=== PATIENT | male | born 1970 | race Caucasian/White ===

== ENCOUNTER 2017-03-09 09:17 | Emergency (ER) | payer OTHER ==
[~2017-03-09] VITALS: Ht 177.8 cm; Wt 98.4 kg
[~2017-03-09 09:17] MED LIST: IBUP-1050 PO
[2017-03-09] MEDS ORDERED: BACITRACIN/POLYMYXIN B OINT 15 GM TUBE EXT STA (09:24)
[2017-03-09] MEDS ORDERED: LIDOCAINE/EPINEPHRINE 1% 20 ML VIAL ONE (09:25)
[2017-03-09 09:28] VITALS: TEMP 36.7; Ht 177.8 cm; Wt 98.4 kg
[2017-03-09] MEDS ORDERED: LIDOCAINE/EPINEPHRINE 1% 20 ML VIAL INFIL ONE (09:30)
[2017-03-09] MEDS ORDERED: AMOXICILLIN/CLAVULANATE TAB 875 MG TAB PO ONE (09:30)
[2017-03-09 09:41] VITALS: BP 137/110; PULSE 80; O2SAT 95
[2017-03-09] MEDS ORDERED: AMOX875T PO (09:42)
--- NOTE | 2017-03-09 09:49 | EMERGENCY ROOM VISIT NOTE ---
History Report prepared by Willa: Yesika Cheney Under the Supervision of: Dr. Ole Khan D.O. First contact with patient: 09:20 Chief Complaint: BITE Stated Complaint: DOG BITE History of Present Illness The patient is a 46 year old male who presents to the Emergency Room with complaints of a dog bite. The patient works for a [employer] and when he was on a customer's property he was approached by a dog who bit him in the left calf. The patient was brought to the emergency department by amulet's. Bleeding was controlled with pressure. The patient states that his pain is significantly worsened with any movement or ambulation. The patient was found have elevated blood pressure by the prehospital personnel prior to arrival. He states that he is in significant pain. The patient states that he is up-to-date with immunizations. According to the patient the animal that bit him is up-to- date with its rabies vaccinations as of 2017. 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 A total of 6 systems reviewed and were otherwise negative. Past Medical & Surgical Medical Problems: (1) Benign hypertension (2) Hernia repair Family History No significant family history Social History Smoking Status: Never Smoker Alcohol Use: occasionally Drug Use: none Marital Status: Housing Status: lives with family Occupation Status: employed Current/Historical Medications Scheduled Amoxicillin & Pot Clavulanate (Augmentin 875-125 mg), 875 MG PO BID Allergies Coded Allergies: No Known Allergies (Verified , 03/09/17) Physical Exam Vital Signs Date Time Temp Pulse Resp B/P (MAP) Pulse Ox O2 Delivery O2 Flow Rate FiO2 03/09/17 09:41 80 18 137/110 95 Room Air 03/09/17 09:28 36.7 89 18 135/102 97 Room Air Physical Exam GENERAL: Patient is awake and alert. He is somewhat anxious and uncomfortable. EYES: The conjunctivae are clear. The pupils are round and reactive. EARS, NOSE, MOUTH AND THROAT: The nose is without any evidence of any deformity. Mucous membranes are moist tongue is midline RESPIRATORY: Normal respiratory effort is noted there is no evidence of wheezing rhonchi or rales CARDIOVASCULAR: Regular rate and rhythm noted there no murmurs rubs or gallops normal S1 normal S2 GASTROINTESTINAL: The abdomen is soft. Bowel sounds are present in all quadrants. Abdomen is nontender MUSCULOSKELETAL/EXTREMITIES: There is no evidence of gross deformity full range of motion is noted in the hips and shoulders SKIN: There is no obvious evidence of any rash. There is a 3 centimeter laceration in the proximal left calf. There is no active bleeding at this time. There is also an abrasion beneath this laceration. It is not full-thickness. NEUROLOGIC: Patient is awake alert and oriented x3. Medical Decision & Procedures Medications Administered Medications (Trade) Dose Ordered Sig/Claude Route Start Time Stop Time Status Last Admin Dose Admin Bacitracin/ Polymyxin B Sulfate (Polysporin Oint) 1 appln NOW STAT EXT 03/09/17 09:24 03/09/17 09:25 DC 03/09/17 09:43 1 APPLN Amoxicillin/ Clavulanate Potassium (Augmentin Tab) 875 mg ONE ONCE PO 03/09/17 09:30 03/09/17 09:31 DC 03/09/17 09:42 875 MG Procedure Location: Posterior left calf Total length: 3 centimeters Complexity: Medium Verbal consent was obtained after the risks and benefits were explained, including but not limited to bleeding, scarring, infection, pain, and bone/joint /nerve damage. At this time, the risks of the procedure are less than the risks of NOT performing the procedure. A time out was taken and the correct patient and site identified. The skin was prepped with betadine. The target area was anesthetized with 8 ml of 1% lidocaine with epinephrine. Copious irrigation was performed using normal saline and Betadine. The skin was re-prepped with betadine and a sterile field set. The wound was explored for foreign bodies and none found. Examination revealed no injury to deep structures such as tendons, bone, or significant blood vessels. Debridement was not performed. The wound edges were approximated using 4, 4-0 simple interrupted nylon sutures. The mid portion of the laceration was approximated using one , 4-0 vertical mattress suture. Hemostasis and excellent approximation was achieved. Antibacterial ointment and a sterile dressing applied. Detailed wound care instructions and signs and symptoms of infection reviewed with the patient. No complications and the patient tolerated the procedure well. ED Course 919: The patient was evaluated in room B6. A complete history and physical examination were performed. 24: Polysporin Oint EXT 25: Lidocaine/Epinephrine 8 ml SQ 929: Augmentin 875 mg PO 32: I reassessed the patient at this time. I performed a laceration repair. Please see the procedure note above for further details. I discussed the results and treatment plan with the patient. I answered all pertaining questions that he had. He expressed understanding and verbalized agreement. The patient will be discharged home. Medical Decision Triage Nursing notes reviewed. The prehospital documentation was reviewed. The patient's history was concerning for dog bite to the left lower extremity. Differential diagnosis: Etiologies such as cellulitis, abscess, MRSA infection, necrotizing fasciitis, dermatitis, as well as others were entertained.. The patient is a 46-year-old male who presented to the emergency department for an evaluation after a dog bite to his left calf. The patient is up-to-date with immunizations. Animal control was notified and will follow-up the dog's history and immunization record as well as how the dog is doing over the next week. The area was irrigated thoroughly. The laceration was approximated and the patient tolerated procedure well. The patient was encouraged to follow-up with employee health for his job for the next few days for wound check. He was also encouraged to have sutures removed in 7-10 days. He was also encouraged to return to the emergency department immediately if develops signs of infection or if need arises. The patient was offered pain medication but he did not wish to have any but he felt much better after lidocaine injection. Head Trauma GCS Score: 15 Medication Reconcilliation Current Medication List: was personally reviewed by me Blood Pressure Screening Patient's blood pressure: Elevated blood pressure Blood pressure disposition: Referred to PCP Impression Primary Impression: Dog bite Scribe Attestation The scribe's documentation has been prepared under my direction and personally reviewed by me in its entirety. I confirm that the note above accurately reflects all work, treatment, procedures, and medical decision making performed by me. Departure Information Dispostion Home / Self-Care Prescriptions Amoxicillin & Pot Clavulanate (Augmentin 875-125 mg) 1 Tab Tab 875 MG PO BID for 7 Days, #14 TAB Prov: Ole Khan, 03/09/17 Forms HOME CARE DOCUMENTATION FORM, Work Instructions, Return To Work: 1 day IMPORTANT VISIT INFORMATION Patient Instructions My [facility], ED Bite Dog Additional Instructions Follow-up with employee health through your job for a wound check in 2 or 3 days. I would recommend suture removal in 7-10 days. Continue to put triple antibiotic ointment to the area 2-3 times a day. Continue to keep the area covered with bandages. Continue using Motrin and Tylenol as directed for pain. Return to the emergency department immediately if signs of infection develop such as swelling pain redness drainage or if the need arises. Return to the emergency department for rabies vaccination if the dog becomes sick runs away or cannot be followed up in 7-10 days. Work Instructions Return To Work: 1 day Problem Qualifiers Primary Impression: Dog bite Encounter type: initial encounter Qualified Codes: W54.0XXA - Bitten by dog , initial encounter
== END 2017-03-09 10:00 | disposition home or self-care (01) ==
LOC: EDBD 09:17 → C.EDB 09:17
DX: S81.852A Open bite, left lower leg, initial encounter (principal); W54.0XXA Bitten by dog, initial encounter; Y99.0 Civilian activity done for income or pay; I10 Essential (primary) hypertension

== ENCOUNTER 2021-01-30 11:00 | Inpatient (IN) ==
[2021-01-30 12:35] LABS: Basophils # (auto) 0.01 K/uL (0-0.2); Basophils % (auto) 0.1 %; Hematocrit (blood only) 54.4 % (42-52); Hemoglobin 18.5 g/dL (14.0-18.0); Immature Granulocytes # (auto) 0.05 K/uL (0.00-0.02); Immature Granulocytes % (auto) 0.3 %; Lymphocytes # (auto) 2.13 K/uL (1.2-3.4); Lymphocytes % (auto) 12.8 %; Mean Corpuscular Hemoglobin 32.2 pg (25-34); Mean Corpuscular Volume 94.6 fL (80-100); Mean Platelet Volume 11.5 fL (7.4-10.4); Monocytes # (auto) 0.16 K/uL (0.11-0.59); Neutrophils # (auto) 14.34 K/uL (1.4-6.5); Neutrophils % (auto) 85.8 %; Platelet Count 299 K/uL (130-400); RDW Coefficient of Variation 13.3 % (11.5-14.5); RDW Standard Deviation 45.9 fL (36.4-46.3); Red Blood Count 5.75 M/uL (4.7-6.1); White Blood Count 16.69 K/uL (4.8-10.8)
[2021-01-30 12:39] LABS: Appearance Urine Cloudy (Clear); Bacteria Urine Automated Negative (Negative); Blood Urine Negative (Negative); Color Urine Dark Yellow; Glucose Urine UA Negative (Negative); Ketones Urine Trace (Negative); Leukocyte Esterase Urine Negative (Negative); Nitrite Urine Negative (Negative); Protein Urine 1+ (Negative); Specific Gravity Urine 1.028 (1.000-1.030); Urobilinogen Urine Negative (Negative)
[2021-01-30 12:40] LABS: Bilirubin Urine 3+ (Negative)
[2021-01-30 12:55] LABS: Albumin Level 4.3 gm/dl (3.4-5.0); Calcium 9.7 mg/dl (8.5-10.1); Creatinine Clr Calc Pharmacy 79.6 ml/min; Est GFR (African American) 74.8 ml/min; Est GFR (Non-African American) 64.5 ml/min; Potassium 4.1 mmol/L (3.5-5.1)
[2021-01-30 12:58] LABS: Albumin Globulin Ratio 1.2 (0.9-2); Bilirubin,Total 0.6 mg/dl (0.2-1); Globulin 3.6 gm/dl (2.5-4.0); Total Protein 7.9 gm/dl (6.4-8.2)
[2021-01-30] MEDS ORDERED: ONDANSETRON INJ 2 MG/ML 2 ML VIAL ONE (14:52)
[2021-01-30] MEDS ORDERED: SODIUM CHLORIDE 0.9% 1000ML 1,000 ML IV ONE (15:02)
[2021-01-30] MEDS ORDERED: ONDANSETRON INJ 2 MG/ML 2 ML VIAL IV STA (15:02)
--- NOTE | 2021-01-30 15:08 | Emergency Department Note ---
History of Present Illness General Chief Complaint: Vomiting Stated Complaint: VOMITING SINCE YESTERDAY, REFERRED BY DOCTOR Time Seen by Provider: 01/30/21 14:58 History of Present Illness Provider Complaint: abdominal pain Onset (ago): 1 day(s) Pain Consistency: constant Location: epigastric Severity: mild Maximum Pain Intensity: 3 Current Pain Intensity: 3 Quality: + stabbing, + aching, + sharp and + dull Relieved By: + nothing Exacerbated By: + nothing Context: no foreign travel, no possible food poisoning, no sick contacts, no recent antibiotic use, no recent surgery/procedure or no recent injury Associated Symptoms: + nausea, + vomiting and + constipation; no diarrhea, no fever, no chills, no dysuria, no hematemesis, no hematochezia, no melena, no hematuria, no anorexia, no syncope, no headache, no neck pain, no back pain, no chest pain, no weakness, no breathing difficulty and no numbness Home Medications Medication Instructions Recorded Confirmed Type etodolac 200 mg capsule 200 mg PO Q8H PRN #30 cap 01/27/21 01/30/21 Rx methylprednisolone 4 mg tablets in 4 mg PO UD #21 ea 01/27/21 01/30/21 Rx a dose pack (Medrol (Gian)) oxycodone 5 mg tablet 5 mg PO Q6H PRN #14 tab 01/27/21 01/30/21 Rx cyclobenzaprine 10 mg tablet 10 mg PO BID PRN 01/30/21 01/30/21 History Allergies Allergy/AdvReac Type Severity Reaction Status Date / Time No Known Allergies Allergy Verified 01/30/21 15:03 Past Med/Surg History Medical History (Updated 01/30/21 @ 21:18 by Erick Brown) Chronic back pain Enteritis No pertinent family history Surgical History (Updated 01/30/21 @ 18:12 by Abbie Mahmood PA-C) H/O inguinal hernia repair S/P PAP[employer]INE TENDER shunt Family History (Updated 01/30/21 @ 18:14 by Abbie Mahmood PA-C) Other Family history non-contributory Social History (Updated 01/30/21 @ 18:14 by Abbie Mahmood PA-C) Smoking Status: Never smoker Tobacco Type: Smokeless Tobacco (Dip or Chew) Hx Alcohol Use: Yes Alcohol type: beer Hx Substance Use: No Preferred Language: Gabonese Communication Ability: Effective Director Of Curriculum And Instruction Required: No Current Living Situation: Spouse Feels Safe at Home: Yes Assistive Devices: Glasses Review of Systems A total of 10 systems reviewed and were otherwise negative Physical Exam Vital Signs: Vital Signs - 24 hr 01/30/21 11:12 01/30/21 12:24 01/30/21 14:58 Temperature 36.5 C Temperature Source Temporal Artery Sc an Pulse Rate 92 H Pulse Rate [Right Finger] 74 58 L Pulse Rhythm Regular Pulse Rhythm [Righ t Finger] Regular Pulse Strength Normal Pulse Strength [Ri ght Finger] Normal Respiratory Rate 18 20 18 Respiratory Effort / Characteristics Non-Labored Sponta neous Non-Labored Respiratory Depth Normal Normal Respiratory Patter n Regular Regular Blood Pressure 138/108 H Blood Pressure [Ri ght Arm] 130/96 151/107 H Blood Pressure Shelby n 118 Blood Pressure Shelby n [Right Arm] 107 121 Blood Pressure Pos ition [Right Arm] Sitting Pulse Oximetry 94 100 97 Oxygen Delivery Me thod Room Air Room Air Room Air Sepsis Recent Feve r Within 48 Hours No Sepsis New/Unexpla ined Change in Men paz Status No Sepsis Action Take n by Nursing No Action Required 01/30/21 17:11 Temperature Temperature Source Pulse Rate Pulse Rate [Right Finger] 67 Pulse Rhythm Pulse Rhythm [Righ t Finger] Pulse Strength Pulse Strength [Ri ght Finger] Respiratory Rate 18 Respiratory Effort / Characteristics Respiratory Depth Respiratory Patter n Blood Pressure Blood Pressure [Ri ght Arm] 151/107 H Blood Pressure Shelby n Blood Pressure Shelby n [Right Arm] 121 Blood Pressure Pos ition [Right Arm] Pulse Oximetry 96 Oxygen Delivery Me thod Room Air Sepsis Recent Feve r Within 48 Hours Sepsis New/Unexpla ined Change in Men paz Status Sepsis Action Take n by Nursing Physical Exam: Physical Exam GENERAL: He is oriented to person, place, and time. He appears well-developed and well-nourished. He does not appear distressed. HENT: Exam performed. - Head: Normocephalic and atraumatic. - Right Ear: External ear normal. No mastoid tenderness. - Left Ear: External ear normal. No mastoid tenderness. - Mouth/Throat: The oropharynx is clear and moist. No trismus in the jaw. No dental abscesses or uvula swelling. No oropharyngeal exudate or tonsillar abscesses. EYES: Conjunctivae and EOM are normal. Pupils are equal, round, and reactive to light. Right eye exhibits no discharge. Left eye exhibits no discharge. No scleral icterus. NECK: Normal range of motion. Neck supple. No JVD present. No spinous process tenderness present. No carotid bruit present. No rigidity. No tracheal deviation and normal range of motion present. No Brudzinski's sign and no Kernig's sign noted. CV: Normal rate, regular rhythm, normal heart sounds and intact distal pulses. There is no peripheral edema. Palpable radial pulses bue. PULM/CHEST: Effort normal and breath sounds normal. No respiratory distress. No stridor. He has no wheezes. He has no rales. - Chest Wall: He exhibits no tenderness. ABD: The abdomen is soft. Bowel sounds are normal. He has no distension. No mass is present. There is tenderness to palpation of the epigastric area. There is no rebound, no guarding, no Piper's sign and no tenderness at McBurney's point. Rovsig negative. MUSC/SKEL: Normal range of motion. There is no peripheral edema, tenderness or deformity. LYMPH: No cervical adenopathy. NEURO: He is alert and oriented to person, place, and time. He has normal strength. No cranial nerve deficit or sensory deficit. Coordination and gait normal. GCS eye subscore is 4. GCS verbal subscore is 5. GCS motor subscore is 6. Cerebellar tests wnl. SKIN: Skin is warm and dry. He is not diaphoretic. PSYCH: He has a normal mood and affect. Behavior is normal. Judgment and thought content normal. Course Course 145: The patient was evaluated in room B4. A complete history and physical exam was performed Cardiac monitoring: An order was placed for continuous cardiac monitoring. The monitor shows a rate of 60 with sinus rhythm Patient was seen during a time of extreme volume and extreme acuity during the COVID-19 pandemic. Nursing triage protocols were initiated and labs were drawn by protocol in the triage area. 1700: Vital signs stable. Labs show leukocytosis of 16. CT shows enteritis with a partial small bowel obstruction. Discussed case with general surgery Who agreed to be on consult and both he and I feel like the patient should be admitted to the medicine service. Discussed with Codi Palmer hospitalist team who stated to admit to Dr. Nixon Administered Medications Sodium Chloride (Nss 1000ml) 1,000 mls @ 125 mls/hr IV .Q8H TEJAS Stop: 03/01/21 17:14 Last Admin: 01/30/21 17:26 Dose: 125 mls/hr Documented by: [id number] Discontinued Medications Sodium Chloride (Nss 1000ml) 1,000 mls @ 999 mls/hr IV .Q1H1M ONE Stop: 01/30/21 16:02 Last Infusion: 01/30/21 19:14 Dose: 0 mls/hr Documented by: [id number] Admin: 01/30/21 15:16 Dose: 999 mls/hr Documented by: [id number] Ioversol (Optiray 320 100ml) 94 ml IV ONCE ONE Stop: 01/30/21 16:21 Last Admin: 01/30/21 16:21 Dose: 94 ml Documented by: [id number] Ondansetron HCl (Ondansetron Inj 2 Mg/Ml 2 Ml Vial) Confirm Administered Dose 4 mg .ROUTE .STK-MED ONE Stop: 01/30/21 14:53 Last Admin: 01/30/21 14:57 Dose: 4 mg Documented by: [id number] Ondansetron HCl (Ondansetron Inj 2 Mg/Ml 2 Ml Vial) 4 mg IV NOW STA Stop: 01/30/21 15:03 Last Admin: 01/30/21 15:16 Dose: Not Given Documented by: [id number] Medical Decision Making Laboratory Data Result diagrams: 01/30/21 12:16 01/30/21 12:16 Lab Results 01/30/21 01/30/21 01/30/21 Range/Units 12:16 12:16 12:23 WBC 16.69 H (4.8-10.8) K/uL RBC 5.75 (4.7-6.1) M/uL Hgb 18.5 H (14.0-18.0) g/dL Hct 54.4 H (42-52) % MCV 94.6 (80-100) fL MCH 32.2 (25-34) pg MCHC 34.0 (32-36) g/dL RDW Std Deviation 45.9 (36.4-46.3) fL RDW Coeff of Laura 13.3 (11.5-14.5) % Plt Count 299 (130-400) K/uL MPV 11.5 H (7.4-10.4) fL Immature Gran % (Auto) 0.3 % Neut % (Auto) 85.8 % Lymph % (Auto) 12.8 % Grand % (Auto) 1.0 % Eos % (Auto) 0.0 % Baso % (Auto) 0.1 % Neut # (Auto) 14.34 H (1.4-6.5) K/uL Lymph # (Auto) 2.13 (1.2-3.4) K/uL Grand # (Auto) 0.16 (0.11-0.59) K/uL Eos # (Auto) 0.00 (0-0.5) K/uL Baso # (Auto) 0.01 (0-0.2) K/uL Immature Gran # (Auto) 0.05 H (0.00-0.02) K/uL Sodium 139 (136-145) mmol/L Potassium 4.1 (3.5-5.1) mmol/L Chloride 104 (98-107) mmol/L Carbon Dioxide 26 (21-32) mmol/L Anion Gap 9.0 (3-11) BUN 19 H (7-18) mg/dl Creatinine 1.27 (0.6-1.4) mg/dl Est Cr Clr Drug Dosing 79.6 ml/min Est GFR ( Amer) 74.8 ml/min Est GFR (Non-Af Amer) 64.5 ml/min BUN/Creatinine Ratio 15.0 (10-20) Glucose 107 H (70-99) mg/dl Calcium 9.7 (8.5-10.1) mg/dl Total Bilirubin 0.6 (0.2-1) mg/dl AST 14 L (15-37) U/L ALT 20 (12-78) U/L Alkaline Phosphatase 76 (45-117) U/L Total Protein 7.9 (6.4-8.2) gm/dl Albumin 4.3 (3.4-5.0) gm/dl Globulin 3.6 (2.5-4.0) gm/dl Albumin/Globulin Ratio 1.2 (0.9-2) Lipase 162 (73-393) U/L Urine Color Dark Yellow Urine Appearance Cloudy A (Clear) Urine pH 6.0 (4.5-7.5) Ur Specific [place] 1.028 (1.000-1.030) Urine Protein 1+ H (Negative) Urine Glucose (UA) Negative (Negative) Urine Ketones Trace H (Negative) Urine Blood Negative (Negative) Urine Nitrite Negative (Negative) Urine Bilirubin 3+ H (Negative) Urine Urobilinogen Negative (Negative) Ur Leukocyte Esterase Negative (Negative) Urine WBC (Auto) 1-5 (0-5) /hpf Urine RBC (Auto) 5-10 H (0-4) /hpf U Hyaline Cast (Auto) 5-10 H (0-5) /lpf U Epithel Cells (Auto) 5-10 H (0-5) /lpf Urine Bacteria (Auto) Negative (Negative) COVID-19 Eval Order SARS-CoV-2 (PCR) (Negative) 01/30/21 01/30/21 Range/Units 17:20 17:20 WBC (4.8-10.8) K/uL RBC (4.7-6.1) M/uL Hgb (14.0-18.0) g/dL Hct (42-52) % MCV (80-100) fL MCH (25-34) pg MCHC (32-36) g/dL RDW Std Deviation (36.4-46.3) fL RDW Coeff of Laura (11.5-14.5) % Plt Count (130-400) K/uL MPV (7.4-10.4) fL Immature Gran % (Auto) % Neut % (Auto) % Lymph % (Auto) % Grand % (Auto) % Eos % (Auto) % Baso % (Auto) % Neut # (Auto) (1.4-6.5) K/uL Lymph # (Auto) (1.2-3.4) K/uL Grand # (Auto) (0.11-0.59) K/uL Eos # (Auto) (0-0.5) K/uL Baso # (Auto) (0-0.2) K/uL Immature Gran # (Auto) (0.00-0.02) K/uL Sodium (136-145) mmol/L Potassium (3.5-5.1) mmol/L Chloride (98-107) mmol/L Carbon Dioxide (21-32) mmol/L Anion Gap (3-11) BUN (7-18) mg/dl Creatinine (0.6-1.4) mg/dl Est Cr Clr Drug Dosing ml/min Est GFR ( Amer) ml/min Est GFR (Non-Af Amer) ml/min BUN/Creatinine Ratio (10-20) Glucose (70-99) mg/dl Calcium (8.5-10.1) mg/dl Total Bilirubin (0.2-1) mg/dl AST (15-37) U/L ALT (12-78) U/L Alkaline Phosphatase (45-117) U/L Total Protein (6.4-8.2) gm/dl Albumin (3.4-5.0) gm/dl Globulin (2.5-4.0) gm/dl Albumin/Globulin Ratio (0.9-2) Lipase (73-393) U/L Urine Color Urine Appearance (Clear) Urine pH (4.5-7.5) Ur Specific [place] (1.000-1.030) Urine Protein (Negative) Urine Glucose (UA) (Negative) Urine Ketones (Negative) Urine Blood (Negative) Urine Nitrite (Negative) Urine Bilirubin (Negative) Urine Urobilinogen (Negative) Ur Leukocyte Esterase (Negative) Urine WBC (Auto) (0-5) /hpf Urine RBC (Auto) (0-4) /hpf U Hyaline Cast (Auto) (0-5) /lpf U Epithel Cells (Auto) (0-5) /lpf Urine Bacteria (Auto) (Negative) COVID-19 Eval Order Covid19 at [facility] SARS-CoV-2 (PCR) NEGATIVE (Negative) Imaging Data Radiologist's Impression: Abdomen/Pelvis CT 01/30/21 15:[address] WITH IV CONTRAST CT DOSE: 674.99 mGy.cm HISTORY: nausea vomiting epigastric pain TECHNIQUE: Multiaxial CT images of the abdomen and pelvis were performed following the use of intravenous contrast. A dose lowering technique was utilized adhering to the principles of ALARA. COMPARISON STUDY: None. FINDINGS: Bibasilar linear densities consistent with subsegmental atelectasis. No pneumoperitoneum. No pneumatosis. No suspicious lytic are blastic osseous lesions. Dilated gas and fluid-filled loops of small bowel within the midabdomen which measure up to 3.5 cm in diameter. The distal loops of bowel demonstrate a smooth tapering without evidence for a clear transition point. There is mild thickening within the small bowel loops within the midabdomen and right lower quadrant distal to the dilated loops of bowel. Therefore, this could represent a nonspecific enteritis resulting in a partial small bowel obstruction. There is a peritoneal catheter terminating within the left lower quadrant. Trace ascites is noted. The bladder is unremarkable. Colonic diverticulosis. No evidence for acute diverticulitis. Normal appendix. Normal caliber abdominal aorta. No retroperitoneal lymphadenopathy. There is a horseshoe kidney. No hydronephrosis. A few subcentimeter hypodense lesions within the horseshoe kidney are technically too small to characterize but favor cysts. There are few scattered subcentimeter hypodense lesions within the liver which are also technically too small to characterize but favor benign lesions such as cysts or hemangiomas. The spleen, adrenal glands, pancreas, and gallbladder are unremarkable. IMPRESSION: 1. A few dilated gas and fluid-filled loops of small bowel within the m idabdomen. The bowel loops distal to this area appear to be slightly thickened and demonstrate smooth tapering without evidence for a clear transition point. Therefore, this favors a nonspecific enteritis resulting in a partial small bowel obstruction. 2. Trace ascites. 3. Horseshoe kidney. 4. Additional findings as described above. ACT 112: Negative or not required by law. Electronically signed by: Lalito Boykin M.D. 01/30/2021 4:31 PM [facility] Narrative 1458: The patient was evaluated in room B4. A complete history and physical exam was performed Cardiac monitoring: An order was placed for continuous cardiac monitoring. The monitor shows a rate of 60 with sinus rhythm Patient was seen during a time of extreme volume and extreme acuity during the COVID-19 pandemic. Nursing triage protocols were initiated and labs were drawn by protocol in the triage area. 1700: Vital signs stable. Labs show leukocytosis of 16. CT shows enteritis with a partial small bowel obstruction. Discussed case with general surgery Who agreed to be on consult and both he and I feel like the patient should be admitted to the medicine service. Discussed with Codi Palmer hospitalist team who stated to admit to Dr. Nixon Impression & Plan SBO (small bowel obstruction) Discharge Plan Visit Data Chief Complaint: Vomiting Stated Complaint: VOMITING SINCE YESTERDAY, REFERRED BY DOCTOR Discharge Problem: SBO (small bowel obstruction) Patient Disposition: Admitted As Inpatient Discharge Instructions Interventions: ED Discharge Assessment Last Done: 01/30/21 20:24
[2021-01-30] MEDS ORDERED: OPTIRAY 320 100ml IV ONE (16:20)
--- NOTE | 2021-01-30 16:32 | CT Scan Report ---
ABDOMEN AND PELVIS CT WITH IV CONTRAST CT DOSE: 674.99 mGy.cm HISTORY: nausea vomiting epigastric pain TECHNIQUE: Multiaxial CT images of the abdomen and pelvis were performed following the use of intrave nous contrast. A dose lowering technique was utilized adhering to the principles of ALARA. COMPARISON STUDY: None. FINDINGS: Bibasilar linear densities consistent with subsegmental atelectasis. No pneumoperitoneum. N o pneumatosis. No suspicious lytic are blastic osseous lesions. Dilated gas and fluid-filled loops of small bowel within the midabdomen which measure up to 3.5 cm in diameter. The distal loops of bowel demonstrate a smooth tapering without evidence for a clear transition point. There is mild thickening within the small bowel loops within the midabdomen and right lower quadrant distal to the dilated lo ops of bowel. Therefore, this could represent a nonspecific enteritis resulting in a partial small mindy wel obstruction. There is a peritoneal catheter terminating within the left lower quadrant. Trace asc ites is noted. The bladder is unremarkable. Colonic diverticulosis. No evidence for acute diverticuli tis. Normal appendix. Normal caliber abdominal aorta. No retroperitoneal lymphadenopathy. There is a horseshoe kidney. No hydronephrosis. A few subcentimeter hypodense lesions within the horseshoe kidne y are technically too small to characterize but favor cysts. There are few scattered subcentimeter hy podense lesions within the liver which are also technically too small to characterize but favor benig n lesions such as cysts or hemangiomas. The spleen, adrenal glands, pancreas, and gallbladder are unr emarkable. IMPRESSION: 1. A few dilated gas and fluid-filled loops of small bowel within the midabdomen. The bowel loops dis paz to this area appear to be slightly thickened and demonstrate smooth tapering without evidence for a clear transition point. Therefore, this favors a nonspecific enteritis resulting in a partial smal l bowel obstruction. 2. Trace ascites. 3. Horseshoe kidney. 4. Additional findings as described above. ACT 112: Negative or not required by law. Electronically signed by: Lalito Boykin M.D. 01/30/2021 4:31 PM
[2021-01-30] MEDS ORDERED: SODIUM CHLORIDE 0.9% 1000ML 1,000 ML IV SCH (17:15)
--- NOTE | 2021-01-30 17:55 | Surgery Consultation ---
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 Was in ED a few days ago for worsened back pain, d/c'ed with pain meds. Yesterday after work he developed nausea and vomiting. Abdominal soreness today after vomiting all night. No diarrhea, not a lot of flatus. No sick contacts, no abnormal or concerning foods. No personal or family history of crohn's/UC. H/O inguinal hernia repairs, no other abd surgery. Allergies Allergy/AdvReac Type Severity Reaction Status Date / Time No Known Allergies Allergy Verified 01/30/21 15:03 Home Medications Medication Instructions Recorded Confirmed Type etodolac 200 mg capsule 200 mg PO Q8H PRN #30 cap 01/27/21 01/30/21 Rx methylprednisolone 4 mg tablets in 4 mg PO UD #21 ea 01/27/21 01/30/21 Rx a dose pack (Medrol (Gian)) oxycodone 5 mg tablet 5 mg PO Q6H PRN #14 tab 01/27/21 01/30/21 Rx cyclobenzaprine 10 mg tablet 10 mg PO BID PRN 01/30/21 01/30/21 History Patient History Medical History (Updated 01/30/21 @ 17:59 by Lenny Reynolds DO, FACS) Enteritis No pertinent family history No pertinent past medical history Surgical History (Updated 01/30/21 @ 17:59 by Lenny Reynolds DO, FACS) No pertinent past surgical history 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 TECHNOLOGIST shunt Social History Smoking Status: Never smoker Preferred Language: Yakut Feels Safe at Home: Yes Review of Systems Review of Systems: All systems reviewed & are unremarkable except as noted in HPI & below Physical Exam Constitutional: WD/WN, vitals as above Respiratory: normal respiratory effort, lungs clear to auscultation Cardiovascular: RRR, no murmur, no edema Gastrointestinal (Abdomen): normal bowel sounds, soft, nontender, no hepatosplenomegaly Results & Data ([facility]) Vital Signs (Past 12 Hours) Vital Signs Temp Pulse Pulse Resp BP BP Pulse Ox 01/30/21 17:11 67 18 151/107 H 96 01/30/21 14:58 58 L 18 151/107 H 97 01/30/21 12:24 74 20 130/96 100 01/30/21 11:12 36.5 C 92 H 18 138/108 H 94 Laboratory Results Laboratory Results - last 24 hr 01/30/21 01/30/21 01/30/21 12:16 12:16 12:23 WBC 16.69 H RBC 5.75 Hgb 18.5 H Hct 54.4 H MCV 94.6 MCH 32.2 MCHC 34.0 RDW Std Deviation 45.9 RDW Coeff of Laura 13.3 Plt Count 299 MPV 11.5 H Immature Gran % (Auto) 0.3 Neut % (Auto) 85.8 Lymph % (Auto) 12.8 Powell % (Auto) 1.0 Eos % (Auto) 0.0 Baso % (Auto) 0.1 Neut # (Auto) 14.34 H Lymph # (Auto) 2.13 Powell # (Auto) 0.16 Eos # (Auto) 0.00 Baso # (Auto) 0.01 Immature Gran # (Auto) 0.05 H Sodium 139 Potassium 4.1 Chloride 104 Carbon Dioxide 26 Anion Gap 9.0 BUN 19 H Creatinine 1.27 Est Cr Clr Drug Dosing 79.6 Est GFR ( Amer) 74.8 Est GFR (Non-Af Amer) 64.5 BUN/Creatinine Ratio 15.0 Glucose 107 H Calcium 9.7 Total Bilirubin 0.6 AST 14 L ALT 20 Alkaline Phosphatase 76 Total Protein 7.9 Albumin 4.3 Globulin 3.6 Albumin/Globulin Ratio 1.2 Lipase 162 Urine Color Dark Yellow Urine Appearance Cloudy A Urine pH 6.0 Ur Specific [place] 1.028 Urine Protein 1+ H Urine Glucose (UA) Negative Urine Ketones Trace H Urine Blood Negative Urine Nitrite Negative Urine Bilirubin 3+ H Urine Urobilinogen Negative Ur Leukocyte Esterase Negative Urine WBC (Auto) 1-5 Urine RBC (Auto) 5-10 H U Hyaline Cast (Auto) 5-10 H U Epithel Cells (Auto) 5-10 H Urine Bacteria (Auto) Negative COVID-19 Eval Order SARS-CoV-2 (PCR) 01/30/21 01/30/21 17:20 17:20 WBC RBC Hgb Hct MCV MCH MCHC RDW Std Deviation RDW Coeff of Laura Plt Count MPV Immature Gran % (Auto) Neut % (Auto) Lymph % (Auto) Powell % (Auto) Eos % (Auto) Baso % (Auto) Neut # (Auto) Lymph # (Auto) Powell # (Auto) Eos # (Auto) Baso # (Auto) Immature Gran # (Auto) Sodium Potassium Chloride Carbon Dioxide Anion Gap BUN Creatinine Est Cr Clr Drug Dosing Est GFR ( Amer) Est GFR (Non-Af Amer) BUN/Creatinine Ratio Glucose Calcium Total Bilirubin AST ALT Alkaline Phosphatase Total Protein Albumin Globulin Albumin/Globulin Ratio Lipase Urine Color Urine Appearance Urine pH Ur Specific [place] Urine Protein Urine Glucose (UA) Urine Ketones Urine Blood Urine Nitrite Urine Bilirubin Urine Urobilinogen Ur Leukocyte Esterase Urine WBC (Auto) Urine RBC (Auto) U Hyaline Cast (Auto) U Epithel Cells (Auto) Urine Bacteria (Auto) COVID-19 Eval Order Covid19 at [facility] SARS-CoV-2 (PCR) Pending Diagnostic Findings Personally reviewed CT and agree with enteritis, no high grade sbo. ABDOMEN AND PELVIS CT WITH IV CONTRAST CT DOSE: 674.99 mGy.cm HISTORY: nausea vomiting epigastric pain TECHNIQUE: Multiaxial CT images of the abdomen and pelvis were performed following the use of intravenous contrast. A dose lowering technique was utilized adhering to the principles of ALARA. COMPARISON STUDY: None. FINDINGS: Bibasilar linear densities consistent with subsegmental atelectasis. No pneumoperitoneum. No pneumatosis. No suspicious lytic are blastic osseous lesions. Dilated gas and fluid-filled loops of small bowel within the midabdomen which measure up to 3.5 cm in diameter. The distal loops of bowel demonstrate a smooth tapering without evidence for a clear transition point. There is mild thickening within the small bowel loops within the midabdomen and right lower quadrant distal to the dilated loops of bowel. Therefore, this could represent a nonspecific enteritis resulting in a partial small bowel obstruction. There is a peritoneal catheter terminating within the left lower quadrant. Trace ascites is noted. The bladder is unremarkable. Colonic diverticulosis. No evidence for acute diverticulitis. Normal appendix. Normal caliber abdominal aorta. No retroperitoneal lymphadenopathy. There is a horseshoe kidney. No hydronephrosis. A few subcentimeter hypodense lesions within the horseshoe kidney are technically too small to characterize but favor cysts. There are few scattered subcentimeter hypodense lesions within the liver which are also technically too small to characterize but favor benign lesions such as cysts or hemangiomas. The spleen, adrenal glands, pancreas, and gallbladder are unremarkable. IMPRESSION: 1. A few dilated gas and fluid-filled loops of small bowel within the midabdomen. The bowel loops distal to this area appear to be slightly thickened and demonstrate smooth tapering without evidence for a clear transition point. Therefore, this favors a nonspecific enteritis resulting in a partial small bowel obstruction. 2. Trace ascites. 3. Horseshoe kidney. 4. Additional findings as described above. ACT 112: Negative or not required by law. PG Care Time/CCT Total # of Minutes Spent Total Time Spent with Patient: Total time spent is greater than 50% in coordination of care (as documented) at patient's floor/unit and/or counseling patient: Coding Level of Care Code 55900 Inpt Consult Level 3 Diagnoses Enteritis K52.9 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 MEDICINE TECHNOLOGIST shunt Z98.2 Back pain M54.50 Back pain laterality: bilateral Back pain location: low back pain Chronicity: acute Sciatica presence: without sciatica (1) Back pain Back pain laterality: bilateral Back pain location: low back pain Chronicity: acute Sciatica presence: without sciatica Qualified Code(s): M54.50 - Low back pain, unspecified
--- NOTE | 2021-01-30 18:17 | History & Physical Report ---
Date of Service January 30, 2021 Assessment & Plan (1) SBO (small bowel obstruction): (2) Enteritis: Plan: Patient is 50-year-old male with PMH BPH, chronic back pain presented to ER with complaint of vomiting x1 day. Unable to retain food. Last BM 4 days ago. Does not think he has been passing flatus. Denies abdominal pain In ER afebrile, P: 92, R: 18, BP 138/108, 94% on room air. WBC: 16. Lipase: WNL CT ABD/PELVIS: A few dilated gas and fluid-filled loops of small bowel within the midabdomen. The bowel loops distal to this area appear to be slightly thickened and demonstrate smooth tapering without evidence for a clear transition point. This favors a nonspecific enteritis resulting in a partial small bowel obstruction. Trace ascites. Horseshoe kidney. N.p.o. IVF Cipro Flagyl If recurrent vomiting consider NG tube If diarrhea obtain stool studies Abdomen x-ray in a.m. General surgery consult CBC, BMP in a.m. 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 See addendum Admission and Anticipated Discharge Date Admission Date: Pt seen and examined by me, care coordinated w/ Bobbi Mahmood PA-C, pls refer to her note above for further detail. Pt is 50 y/o male with BPH, chronic back pain presented to ER with complaint of vomiting x1 day. Last night had more than 20 episodes of emesis. Concern for SBO vs. enteritis. WBC: 16. CT ABD/PELVIS: A few dilated gas and fluid-filled loops of small bowel within the midabdomen. The bowel loops distal to this area appear to be slightly thickened and demonstrate smooth tapering without evidence for a clear transition point. This favors a nonspecific enteritis resulting in a partial small bowel obstruction. Currently patient is lying in bed, in no acute distress. Reports that he did not have any episode of emesis since 10 AM this morning. He is alert oriented answering questions appropriately. Heart sounds regular. Lung sounds clear to auscultation bilaterally with any wheezing or crackles. Abdomen soft slightly tender to palpation diffusely. Positive bowel sounds. No lower extremity edema. Moves extremities spontaneously. Seen by surgery while in ED, if vomiting resumes, recommend NG tube. For now n.p.o., IV fluids, IV antibiotics for enteritis. Lucy Nixon MD History of Present Illness Chief Complaint: Vomiting Primary Care Provider: Milvia Myles DO Patient is 50-year-old male with PMH BPH, chronic back pain presented to ER with complaint of vomiting x1 day. Patient states history of recurrent low back pain and couple days ago started with low back pain again. Last night started with vomiting greater than 20 episodes. Reports every time he would try to drink something he would vomit. No vomiting since 10 AM today. Last BM 4 days ago. Does not think he has been passing flatus. Denies any abdominal pain. Last ate yesterday around noon. History hernia repair. Denies fever/chills, diaphoresis, hematemesis, melena, hematochezia, MITCHELL, dizziness, syncope, vision changes, neck pain, CP, SOB, orthopnea, palpitations, cough, sore throat, choking, otalgia, rhinorrhea, paresthesias, weakness, extremity weakness, extremity edema, rashes, urinary symptoms. In ER afebrile, P: 92, R: 18, BP 138/108, 94% on room air. WBC: 16. CT ABD/PELVIS: A few dilated gas and fluid-filled loops of small bowel within the midabdomen. The bowel loops distal to this area appear to be slightly thickened and demonstrate smooth tapering without evidence for a clear transition point. This favors a nonspecific enteritis resulting in a partial small bowel obstruction. Trace ascites. Horseshoe kidney. Allergies Allergy/AdvReac Type Severity Reaction Status Date / Time No Known Allergies Allergy Verified 01/30/21 15:03 Home Medications Medication Instructions Recorded Confirmed Type etodolac 200 mg capsule 200 mg PO Q8H PRN #30 cap 01/27/21 01/30/21 Rx methylprednisolone 4 mg tablets in 4 mg PO UD #21 ea 01/27/21 01/30/21 Rx a dose pack (Medrol (Gian)) oxycodone 5 mg tablet 5 mg PO Q6H PRN #14 tab 01/27/21 01/30/21 Rx cyclobenzaprine 10 mg tablet 10 mg PO BID PRN 01/30/21 01/30/21 History Past Med/Surg History Medical History (Updated 01/30/21 @ 21:18 by Erick Brown) Chronic back pain Enteritis No pertinent family history Surgical History (Updated 01/30/21 @ 18:12 by Abbie Mahmood PA-C) H/O inguinal hernia repair S/P SENIOR MANAGING DIRECTOR shunt Family History (Updated 01/30/21 @ 18:14 by Abbie Mahmood PA-C) Other Family history non-contributory Social History (Updated 01/30/21 @ 18:14 by Abbie Mahmood PA-C) Smoking Status: Never smoker Tobacco Type: Smokeless Tobacco (Dip or Chew) Hx Alcohol Use: Yes Alcohol type: beer Hx Substance Use: No Preferred Language: Hebrew Communication Ability: Effective Fish Processor Required: No Beliefs That Will Affect Care: None Current Living Situation: Spouse Current Living Situation Comment: with Feels Safe at Home: Yes Assistive Devices: None Review of Systems Review of Systems: All systems reviewed & are unremarkable except as noted in HPI & below Physical Exam Physical Exam: General: no distress, WDWN Head: normocephalic, atraumatic Eyes: PERRL, EOM's intact, conjunctiva non-injected, anicteric ENT: normal inspection external ears, nose, mucous membranes moist Neck: supple, trachea midline Lungs: clear, no respiratory distress, no wheezing/rhonchi/rales CV: RRR, no murmur, no pretibial edema Abd: normal BS, soft, non-tender Ext: no cyanosis, no calf tenderness Neuro: A&O x 3, no focal deficits noted, normal affect Skin: warm, dry Results & Data Results & Data ([facility]) Vital Signs (Past 12 Hours) Vital Signs Temp Pulse Pulse Resp BP BP Pulse Ox 01/30/21 17:11 67 18 151/107 H 96 01/30/21 14:58 58 L 18 151/107 H 97 01/30/21 12:24 74 20 130/96 100 01/30/21 11:12 36.5 C 92 H 18 138/108 H 94 Laboratory Results Short CBC 01/30/21 Range/Units 12:16 WBC 16.69 H (4.8-10.8) K/uL Hgb 18.5 H (14.0-18.0) g/dL Hct 54.4 H (42-52) % Plt Count 299 (130-400) K/uL BMP 01/30/21 12:16 Sodium 139 Potassium 4.1 Chloride 104 Carbon Dioxide 26 BUN 19 H Creatinine 1.27 Glucose 107 H Calcium 9.7 Liver Function 01/30/21 Range/Units 12:16 Total Bilirubin 0.6 (0.2-1) mg/dl AST 14 L (15-37) U/L ALT 20 (12-78) U/L Alkaline Phosphatase 76 (45-117) U/L Albumin 4.3 (3.4-5.0) gm/dl Urine 01/30/21 Range/Units 12:23 Urine Color Dark Yellow Urine Appearance Cloudy A (Clear) Urine pH 6.0 (4.5-7.5) Ur Specific [place] 1.028 (1.000-1.030) Urine Protein 1+ H (Negative) Urine Glucose (UA) Negative (Negative) Diagnostic Findings Abdomen/Pelvis CT 01/30/21 15:[address] WITH IV CONTRAST CT DOSE: 674.99 mGy.cm HISTORY: nausea vomiting epigastric pain TECHNIQUE: Multiaxial CT images of the abdomen and pelvis were performed following the use of intravenous contrast. A dose lowering technique was utilized adhering to the principles of ALARA. COMPARISON STUDY: None. FINDINGS: Bibasilar linear densities consistent with subsegmental atelectasis. No pneumoperitoneum. No pneumatosis. No suspicious lytic are blastic osseous lesions. Dilated gas and fluid-filled loops of small bowel within the midabdomen which measure up to 3.5 cm in diameter. The distal loops of bowel demonstrate a smooth tapering without evidence for a clear transition point. There is mild thickening within the small bowel loops within the midabdomen and right lower q uadrant distal to the dilated loops of bowel. Therefore, this could represent a nonspecific enteritis resulting in a partial small bowel obstruction. There is a peritoneal catheter terminating within the left lower quadrant. Trace ascites is noted. The bladder is unremarkable. Colonic diverticulosis. No evidence for acute diverticulitis. Normal appendix. Normal caliber abdominal aorta. No retroperitoneal lymphadenopathy. There is a horseshoe kidney. No hydronephrosis. A few subcentimeter hypodense lesions within the horseshoe kidney are technically too small to characterize but favor cysts. There are few scattered subcentimeter hypodense lesions within the liver which are also technically too small to characterize but favor benign lesions such as cysts or hemangiomas. The spleen, adrenal glands, pancreas, and gallbladder are unremarkable. IMPRESSION: 1. A few dilated gas and fluid-filled loops of small bowel within the midabdomen. The bowel loops distal to this area appear to be slightly thickened and demonstrate smooth tapering without evidence for a clear transition point. Therefore, this favors a nonspecific enteritis resulting in a partial small bowel obstruction. 2. Trace ascites. 3. Horseshoe kidney. 4. Additional findings as described above. ACT 112: Negative or not required by law. Electronically signed by: Lalito Boykin M.D. 01/30/2021 4:31 PM Code Status & VTE Plan VTE Prophylaxis Plan VTE Prophylaxis will be ordered: Yes
[2021-01-30] MEDS ORDERED: ONDANSETRON INJ 2 MG/ML 2 ML VIAL IV PRN (21:22)
[2021-01-30] MEDS ORDERED: MoRPHine SULFATE 2 MG/ML CARP IV PRN (21:22)
[2021-01-30] MEDS ORDERED: ACETAMINOPHEN 1000 MG/100 ML IV IV PRN (21:22)
[2021-01-30] MEDS: SODIUM CHLORIDE 0.9% 1000ML 1,000 ML IV SCH (21:42)
[2021-01-30] MEDS: CIPROFLOXACIN / D5W 400 MG/200 ML BAG IV SCH (22:20)
[2021-01-30] MEDS: metroNIDAZOLE 500 MG/100 ML BAG IV SCH (22:20)
--- NOTE | 2021-01-31 06:16 | Surgery Progress Note ---
Date of Service January 31, 2021 Assessment & Plan (1) Enteritis: Plan: Patient has been admitted by the hospitalist service recommend proceeding as follows: Patient is currently n.p.o. May consider slowly advancing diet beginning with sips of clear liquids only once improved bowel function occurs Continue IV fluid for hydration until oral intake is reliable There is no obvious sign of small bowel obstruction Continue antibiotics as ordered by medicine in the form of Cipro and Flagyl Admission and Anticipated Discharge Date Admission Date: January 30, 2021 Supervising Physician Co-Signing Physician Notes pnt S&E, enteritis with possible sbo. passing flatus, feeling better. may start liquids and slowly advance. no surgery indicated. surgery will follow peripherally. Subjective Patient is resting comfortably in bed. He notes abdominal pain that was present at time of admission has improved slightly. He has not had a bowel movement since admission but he is passing flatus. He denies any nausea or vomiting since admission. Physical Exam Gastrointestinal (Abdomen): Bowel sounds are present. Abdomen is soft and nondistended. There is minimal to no pain with palpation. Results & Data ([facility]) Vital Signs (Past 12 Hours) Vital Signs Temp Pulse Pulse Resp BP Pulse Ox 01/31/21 03:54 113/77 01/31/21 02:28 36.9 C 58 L 18 102/69 96 01/30/21 23:56 36.9 C 65 18 96/59 L 95 01/30/21 22:19 61 01/30/21 21:19 64 01/30/21 21:00 36.9 C 64 20 138/95 96 01/30/21 19:05 60 133/94 97 PG Care Time/CCT Total # of Minutes Spent Total Time Spent with Patient: Total time spent is greater than 50% in coordination of care (as documented) at patient's floor/unit and/or counseling patient: Coding Level of Care Code 62733 Subseq Hosp Care Lvl 1 Diagnoses Enteritis K52.9
[2021-01-31] MEDS: metroNIDAZOLE 500 MG/100 ML BAG IV SCH ×3 (06:19→20:56)
[2021-01-31 07:15] LABS: Hematocrit (blood only) 46.7 % (42-52); Hemoglobin 15.6 g/dL (14.0-18.0); Mean Corpuscular Hemoglobin 31.8 pg (25-34); Mean Corpuscular Hgb Conc 33.4 g/dL (32-36); Mean Corpuscular Volume 95.1 fL (80-100); Mean Platelet Volume 11.3 fL (7.4-10.4); Platelet Count 259 K/uL (130-400); RDW Coefficient of Variation 13.4 % (11.5-14.5); RDW Standard Deviation 47.1 fL (36.4-46.3); Red Blood Count 4.91 M/uL (4.7-6.1); White Blood Count 10.29 K/uL (4.8-10.8)
[2021-01-31 07:33] LABS: BUN Creatinine Ratio 15.3 (10-20); Calcium 8.1 mg/dl (8.5-10.1); Creatinine Clr Calc Pharmacy 93.6 ml/min; Est GFR (Non-African American) 75.9 ml/min; Potassium 3.7 mmol/L (3.5-5.1)
[2021-01-31] MEDS: SODIUM CHLORIDE 0.9% 1000ML 1,000 ML IV SCH ×2 (08:05→10:27)
--- NOTE | 2021-01-31 08:34 | XRay Report ---
KUB CLINICAL HISTORY: Small bowel obstruction. COMPARISON STUDY: CT of the abdomen and pelvis January 30, 2021. FINDINGS: Persistent small bowel dilatation is noted. There is contrast within the bladder from recen t contrast-enhanced CT. Although sensitivity is diminished on this exam, there is no evidence for gayatri e air. Possible shunt catheter is again noted. Tip is within the left mid abdomen. IMPRESSION: Findings suggestive of a persistent small bowel obstruction. ACT 112: Negative or not required by law. Electronically signed by: Hong Floyd M.D. 01/31/2021 8:33 AM
[2021-01-31] MEDS: CIPROFLOXACIN / D5W 400 MG/200 ML BAG IV SCH ×2 (10:26→22:32)
--- NOTE | 2021-01-31 10:45 | Hospitalist Progress Note ---
Date of Service January 31, 2021 Assessment & Plan (1) SBO (small bowel obstruction): (2) Enteritis: Plan: Patient is 50-year-old male with PMH BPH, chronic back pain presented to ER with complaint of vomiting x1 day. Unable to retain food. Last BM 4 days ago. Does not think he has been passing flatus. Denies abdominal pain In ER afebrile, P: 92, R: 18, BP 138/108, 94% on room air. WBC: 16. Lipase: WNL CT ABD/PELVIS: A few dilated gas and fluid-filled loops of small bowel within the midabdomen. The bowel loops distal to this area appear to be slightly thickened and demonstrate smooth tapering without evidence for a clear transition point. This favors a nonspecific enteritis resulting in a partial small bowel obstruction. Trace ascites. Horseshoe kidney. N.p.o.initially, will try sips of liquid IVF Cipro Flagyl If recurrent vomiting consider NG tube and will make npo again If diarrhea obtain stool studies KUB 10/16 - IMPRESSION: Findings suggestive of a persistent small bowel obstruction. 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 WETTER shunt: Plan: Denies headache, dizziness DVT Prophylaxis -SCDs Full Code as per discussion with pt Follows with Dr Myles for routine care Admission and Anticipated Discharge Date Admission Date: January 30, 2021 Subjective Patient seen in follow-up of vomiting, enteritis, mild SBO Currently laying in bed in no acute distress, continues to have slight abdominal pain No vomiting since yesterday he is passing flatus, small BM this morning Denies fevers, chills, chest pain, shortness of breath General surgery following Review of Systems Review of Systems: All systems reviewed & are unremarkable except as noted in Subjective Physical Exam Physical Exam: General: no distress, WDWN Head: normocephalic, atraumatic Eyes: PERRL, EOM's intact, conjunctiva non-injected, anicteric ENT: normal inspection external ears, nose, mucous membranes moist Neck: supple, trachea midline Lungs: clear, no respiratory distress, no wheezing/rhonchi/rales CV: RRR, no murmur, no pretibial edema Abd: Positive bowel sounds, soft, + mildly tender to palp. Ext: no calf tenderness, no LE edema Neuro: A&O x 3, no facial asymmetry, speech fluent, moves extremities Skin: warm, dry Results & Data Results & Data ([facility]) Vital Signs (Past 12 Hours) Vital Signs Temp Pulse Pulse Resp BP Pulse Ox 01/31/21 08:00 36.8 C 56 L 53 L 18 126/88 95 01/31/21 03:54 113/77 01/31/21 02:28 36.9 C 58 L 18 102/69 96 01/30/21 23:56 36.9 C 65 18 96/59 L 95 Laboratory Results 01/31/21 01/31/21 01/31/21 Range/Units 06:26 06:26 05:30 WBC 10.29 (4.8-10.8) K/uL RBC 4.91 (4.7-6.1) M/uL Hgb 15.6 (14.0-18.0) g/dL Hct 46.7 (42-52) % MCV 95.1 (80-100) fL MCH 31.8 (25-34) pg MCHC 33.4 (32-36) g/dL RDW Std Deviation 47.1 H (36.4-46.3) fL RDW Coeff of Laura 13.4 (11.5-14.5) % Plt Count 259 (130-400) K/uL MPV 11.3 H (7.4-10.4) fL Immature Gran % (Auto) % Neut % (Auto) % Lymph % (Auto) % [place] % (Auto) % Eos % (Auto) % Baso % (Auto) % Neut # (Auto) (1.4-6.5) K/uL Lymph # (Auto) (1.2-3.4) K/uL [place] # (Auto) (0.11-0.59) K/uL Eos # (Auto) (0-0.5) K/uL Baso # (Auto) (0-0.2) K/uL Immature Gran # (Auto) (0.00-0.02) K/uL Sodium 142 (136-145) mmol/L Potassium 3.7 (3.5-5.1) mmol/L Chloride 109 H (98-107) mmol/L Carbon Dioxide 29 (21-32) mmol/L Anion Gap 4.0 (3-11) BUN 17 (7-18) mg/dl Creatinine 1.11 (0.6-1.4) mg/dl Est Cr Clr Drug Dosing 93.6 ml/min Est GFR ( Amer) 88.0 ml/min Est GFR (Non-Af Amer) 75.9 ml/min BUN/Creatinine Ratio 15.3 (10-20) Glucose 94 (70-99) mg/dl Calcium 8.1 L D (8.5-10.1) mg/dl Total Bilirubin (0.2-1) mg/dl AST (15-37) U/L ALT (12-78) U/L Alkaline Phosphatase (45-117) U/L Total Protein (6.4-8.2) gm/dl Albumin (3.4-5.0) gm/dl Globulin (2.5-4.0) gm/dl Albumin/Globulin Ratio (0.9-2) Lipase (73-393) U/L Urine Color Urine Appearance (Clear) Urine pH (4.5-7.5) Ur Specific [place] (1.000-1.030) Urine Protein (Negative) Urine Glucose (UA) (Negative) Urine Ketones (Negative) Urine Blood (Negative) Urine Nitrite (Negative) Urine Bilirubin (Negative) Urine Urobilinogen (Negative) Ur Leukocyte Esterase (Negative) Urine WBC (Auto) (0-5) /hpf Urine RBC (Auto) (0-4) /hpf U Hyaline Cast (Auto) (0-5) /lpf U Epithel Cells (Auto) (0-5) /lpf Urine Bacteria (Auto) (Negative) Stl C. diff Tox B Gene TNP COVID-19 Eval Order SARS-CoV-2 (PCR) (Negative) 01/30/21 01/30/21 01/30/21 Range/Units 17:20 17:20 12:23 WBC (4.8-10.8) K/uL RBC (4.7-6.1) M/uL Hgb (14.0-18.0) g/dL Hct (42-52) % MCV (80-100) fL MCH (25-34) pg MCHC (32-36) g/dL RDW Std Deviation (36.4-46.3) fL RDW Coeff of Laura (11.5-14.5) % Plt Count (130-400) K/uL MPV (7.4-10.4) fL Immature Gran % (Auto) % Neut % (Auto) % Lymph % (Auto) % [place] % (Auto) % Eos % (Auto) % Baso % (Auto) % Neut # (Auto) (1.4-6.5) K/uL Lymph # (Auto) (1.2-3.4) K/uL [place] # (Auto) (0.11-0.59) K/uL Eos # (Auto) (0-0.5) K/uL Baso # (Auto) (0-0.2) K/uL Immature Gran # (Auto) (0.00-0.02) K/uL Sodium (136-145) mmol/L Potassium (3.5-5.1) mmol/L Chloride (98-107) mmol/L Carbon Dioxide (21-32) mmol/L Anion Gap (3-11) BUN (7-18) mg/dl Creatinine (0.6-1.4) mg/dl Est Cr Clr Drug Dosing ml/min Est GFR ( Amer) ml/min Est GFR (Non-Af Amer) ml/min BUN/Creatinine Ratio (10-20) Glucose (70-99) mg/dl Calcium (8.5-10.1) mg/dl Total Bilirubin (0.2-1) mg/dl AST (15-37) U/L ALT (12-78) U/L Alkaline Phosphatase (45-117) U/L Total Protein (6.4-8.2) gm/dl Albumin (3.4-5.0) gm/dl Globulin (2.5-4.0) gm/dl Albumin/Globulin Ratio (0.9-2) Lipase (73-393) U/L Urine Color Dark Yellow Urine Appearance Cloudy A (Clear) Urine pH 6.0 (4.5-7.5) Ur Specific [place] 1.028 (1.000-1.030) Urine Protein 1+ H (Negative) Urine Glucose (UA) Negative (Negative) Urine Ketones Trace H (Negative) Urine Blood Negative (Negative) Urine Nitrite Negative (Negative) Urine Bilirubin 3+ H (Negative) Urine Urobilinogen Negative (Negative) Ur Leukocyte Esterase Negative (Negative) Urine WBC (Auto) 1-5 (0-5) /hpf Urine RBC (Auto) 5-10 H (0-4) /hpf U Hyaline Cast (Auto) 5-10 H (0-5) /lpf U Epithel Cells (Auto) 5-10 H (0-5) /lpf Urine Bacteria (Auto) Negative (Negative) Stl C. diff Tox B Gene COVID-19 Eval Order Covid19 at [facility] SARS-CoV-2 (PCR) NEGATIVE (Negative) 01/30/21 01/30/21 Range/Units 12:16 12:16 WBC 16.69 H (4.8-10.8) K/uL RBC 5.75 (4.7-6.1) M/uL Hgb 18.5 H (14.0-18.0) g/dL Hct 54.4 H (42-52) % MCV 94.6 (80-100) fL MCH 32.2 (25-34) pg MCHC 34.0 (32-36) g/dL RDW Std Deviation 45.9 (36.4-46.3) fL RDW Coeff of Laura 13.3 (11.5-14.5) % Plt Count 299 (130-400) K/uL MPV 11.5 H (7.4-10.4) fL Immature Gran % (Auto) 0.3 % Neut % (Auto) 85.8 % Lymph % (Auto) 12.8 % [place] % (Auto) 1.0 % Eos % (Auto) 0.0 % Baso % (Auto) 0.1 % Neut # (Auto) 14.34 H (1.4-6.5) K/uL Lymph # (Auto) 2.13 (1.2-3.4) K/uL [place] # (Auto) 0.16 (0.11-0.59) K/uL Eos # (Auto) 0.00 (0-0.5) K/uL Baso # (Auto) 0.01 (0-0.2) K/uL Immature Gran # (Auto) 0.05 H (0.00-0.02) K/uL Sodium 139 (136-145) mmol/L Potassium 4.1 (3.5-5.1) mmol/L Chloride 104 (98-107) mmol/L Carbon Dioxide 26 (21-32) mmol/L Anion Gap 9.0 (3-11) BUN 19 H (7-18) mg/dl Creatinine 1.27 (0.6-1.4) mg/dl Est Cr Clr Drug Dosing 79.6 ml/min Est GFR ( Amer) 74.8 ml/min Est GFR (Non-Af Amer) 64.5 ml/min BUN/Creatinine Ratio 15.0 (10-20) Glucose 107 H (70-99) mg/dl Calcium 9.7 (8.5-10.1) mg/dl Total Bilirubin 0.6 (0.2-1) mg/dl AST 14 L (15-37) U/L ALT 20 (12-78) U/L Alkaline Phosphatase 76 (45-117) U/L Total Protein 7.9 (6.4-8.2) gm/dl Albumin 4.3 (3.4-5.0) gm/dl Globulin 3.6 (2.5-4.0) gm/dl Albumin/Globulin Ratio 1.2 (0.9-2) Lipase 162 (73-393) U/L Urine Color Urine Appearance (Clear) Urine pH (4.5-7.5) Ur Specific [place] (1.000-1.030) Urine Protein (Negative) Urine Glucose (UA) (Negative) Urine Ketones (Negative) Urine Blood (Negative) Urine Nitrite (Negative) Urine Bilirubin (Negative) Urine Urobilinogen (Negative) Ur Leukocyte Esterase (Negative) Urine WBC (Auto) (0-5) /hpf Urine RBC (Auto) (0-4) /hpf U Hyaline Cast (Auto) (0-5) /lpf U Epithel Cells (Auto) (0-5) /lpf Urine Bacteria (Auto) (Negative) Stl C. diff Tox B Gene COVID-19 Eval Order SARS-CoV-2 (PCR) (Negative) Medications Administered Current Inpatient Medications Acetaminophen (Acetaminophen 1000 Mg/100 Ml Iv) 1,000 mg IV Q8H PRN PRN Reason: Pain or Fever Stop: 02/01/21 21:21 Last Admin: 01/31/21 05:28 Dose: 1,000 mg Documented by: Sodium Chloride (Nss 1000ml) 1,000 mls @ 100 mls/hr IV .Q10H TEJAS Stop: 01/31/21 17:21 Last Admin: 01/31/21 10:27 Dose: 100 mls/hr Documented by: Ciprofloxacin (Cipro / D5w) 400 mg in 200 mls @ 100 mls/hr IV Q12H [facility]; Protocol Stop: 02/09/21 21:59 Last Admin: 01/31/21 10:26 Dose: 100 mls/hr Documented by: Metronidazole (Flagyl) 500 mg in 100 mls @ 100 mls/hr IV Q8H TEJAS Stop: 02/01/21 21:59 Last Infusion: 01/31/21 08:03 Dose: Infused Documented by: Morphine Sulfate (Morphine Sulfate 2 Mg/Ml Carp) 2 mg IV Q4H PRN PRN Reason: Severe Pain Stop: 02/13/21 21:21 Ondansetron HCl (Ondansetron Inj 2 Mg/Ml 2 Ml Vial) 4 mg IV Q6H PRN PRN Reason: Nausea Stop: 03/01/21 21:21
[2021-01-31 11:22] LABS: Magnesium 2.4 mg/dl (1.8-2.4); Phosphorus 3.1 mg/dl (2.5-4.9)
[2021-01-31] MEDS: POTASSIUM CHLORIDE / WTR 10 MEQ/100 ML PLCT IV SCH ×2 (12:12→14:06)
[2021-02-01] MEDS: metroNIDAZOLE 500 MG/100 ML BAG IV SCH ×2 (05:07→13:40)
[2021-02-01 06:36] LABS: Hematocrit (blood only) 45.7 % (42-52); Mean Corpuscular Hemoglobin 31.3 pg (25-34); Mean Corpuscular Hgb Conc 32.8 g/dL (32-36); Mean Corpuscular Volume 95.2 fL (80-100); Mean Platelet Volume 10.8 fL (7.4-10.4); Platelet Count 237 K/uL (130-400); RDW Coefficient of Variation 12.8 % (11.5-14.5); RDW Standard Deviation 44.7 fL (36.4-46.3); White Blood Count 8.71 K/uL (4.8-10.8)
[2021-02-01 07:28] LABS: BUN Creatinine Ratio 8.6 (10-20); Calcium 8.3 mg/dl (8.5-10.1); Creatinine Clr Calc Pharmacy 111.8 ml/min; Est GFR (Non-African American) 94.1 ml/min; Magnesium 2.2 mg/dl (1.8-2.4); Phosphorus 2.4 mg/dl (2.5-4.9); Potassium 3.5 mmol/L (3.5-5.1)
--- NOTE | 2021-02-01 08:21 | Hospitalist Progress Note ---
Date of Service February 01, 2021 Assessment & Plan (1) SBO (small bowel obstruction): (2) Enteritis: Plan: Patient is 50-year-old male with PMH BPH, chronic back pain presented to ER with complaint of vomiting x1 day. Unable to retain food. Last BM 4 days ago. Does not think he has been passing flatus. Denies abdominal pain In ER afebrile, P: 92, R: 18, BP 138/108, 94% on room air. WBC: 16. Lipase: WNL CT ABD/PELVIS: A few dilated gas and fluid-filled loops of small bowel within the midabdomen. The bowel loops distal to this area appear to be slightly thickened and demonstrate smooth tapering without evidence for a clear transition point. This favors a nonspecific enteritis resulting in a partial small bowel obstruction. Trace ascites. Horseshoe kidney. N.p.o.initially, now on liquid diet, and tolerating IVF Cipro Flagyl Repeat KUB 01/31 - IMPRESSION: Findings suggestive of a persistent small bowel obstruction. 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: Plan: Denies headache, dizziness DVT Prophylaxis -SCDs Full Code as per discussion with pt Follows with Dr Myles for routine care Admission and Anticipated Discharge Date Admission Date: January 30, 2021 Subjective Patient seen in follow-up of vomiting, enteritis, mild SBO Currently laying in bed in no acute distress, abdominal pain seems resolved No vomiting since admission, he is passing flatus, had 2 small BM so far He is tolerating clear liquid diet, inquiring about advancing his diet Denies fevers, chills, chest pain, shortness of breath General surgery following Review of Systems Review of Systems: All systems reviewed & are unremarkable except as noted in Subjective Physical Exam Physical Exam: General: no distress, WDWN Head: normocephalic, atraumatic Eyes: PERRL, EOM's intact, conjunctiva non-injected, anicteric ENT: normal inspection external ears, nose, mucous membranes moist Neck: supple, trachea midline Lungs: clear, no respiratory distress, no wheezing/rhonchi/rales CV: RRR, no murmur, no pretibial edema Abd: Positive bowel sounds, soft, + mildly tender to palp. Ext: no calf tenderness, no LE edema Neuro: A&O x 3, no facial asymmetry, speech fluent, moves extremities Skin: warm, dry Results & Data Results & Data ([facility]) Vital Signs (Past 12 Hours) Vital Signs Temp Pulse Pulse Resp BP Pulse Ox 02/01/21 03:01 36.8 C 64 18 121/86 96 02/01/21 00:07 37.0 C 66 18 93/52 L 96 01/31/21 22:20 60 Laboratory Results 02/01/21 02/01/21 01/31/21 Range/Units 06:21 06:21 06:26 WBC 8.71 (4.8-10.8) K/uL RBC 4.80 (4.7-6.1) M/uL Hgb 15.0 (14.0-18.0) g/dL Hct 45.7 (42-52) % MCV 95.2 (80-100) fL MCH 31.3 (25-34) pg MCHC 32.8 (32-36) g/dL RDW Std Deviation 44.7 (36.4-46.3) fL RDW Coeff of Laura 12.8 (11.5-14.5) % Plt Count 237 (130-400) K/uL MPV 10.8 H (7.4-10.4) fL Sodium 139 (136-145) mmol/L Potassium 3.5 (3.5-5.1) mmol/L Chloride 108 H (98-107) mmol/L Carbon Dioxide 28 (21-32) mmol/L Anion Gap 3.0 (3-11) BUN 8 D (7-18) mg/dl Creatinine 0.93 (0.6-1.4) mg/dl Est Cr Clr Drug Dosing 111.8 ml/min Est GFR ( Amer) 109.0 ml/min Est GFR (Non-Af Amer) 94.1 ml/min BUN/Creatinine Ratio 8.6 L (10-20) Glucose 97 (70-99) mg/dl Calcium 8.3 L (8.5-10.1) mg/dl Phosphorus 2.4 L 3.1 (2.5-4.9) mg/dl Magnesium 2.2 2.4 (1.8-2.4) mg/dl Medications Administered Current Inpatient Medications Acetaminophen (Acetaminophen 1000 Mg/100 Ml Iv) 1,000 mg IV Q8H PRN PRN Reason: Pain or Fever Stop: 02/01/21 21:21 Last Admin: 01/31/21 05:28 Dose: 1,000 mg Documented by: Ciprofloxacin (Cipro / D5w) 400 mg in 200 mls @ 100 mls/hr IV Q12H [facility]; Protocol Stop: 02/09/21 21:59 Last Infusion: 02/01/21 00:35 Dose: Infused Documented by: Metronidazole (Flagyl) 500 mg in 100 mls @ 100 mls/hr IV Q8H [facility]AS Stop: 02/01/21 21:59 Last Infusion: 02/01/21 06:10 Dose: Infused Documented by: Morphine Sulfate (Morphine Sulfate 2 Mg/Ml Carp) 2 mg IV Q4H PRN PRN Reason: Severe Pain Stop: 02/13/21 21:21 Ondansetron HCl (Ondansetron Inj 2 Mg/Ml 2 Ml Vial) 4 mg IV Q6H PRN PRN Reason: Nausea Stop: 03/01/21 21:21
[2021-02-01] MEDS ORDERED: POTASSIUM CHLORIDE CRTAB 20 MEQ TABCR PO STA ×2 (08:43→15:10)
[2021-02-01] MEDS: POTASSIUM CHLORIDE / WTR 10 MEQ/100 ML PLCT IV SCH (09:29)
[2021-02-01] MEDS: CIPROFLOXACIN / D5W 400 MG/200 ML BAG IV SCH ×2 (10:19→20:59)
[2021-02-02 08:08] LABS: Hematocrit (blood only) 45.6 % (42-52); Hemoglobin 15.3 g/dL (14.0-18.0); Mean Corpuscular Hemoglobin 31.5 pg (25-34); Mean Corpuscular Hgb Conc 33.6 g/dL (32-36); Mean Corpuscular Volume 93.8 fL (80-100); Mean Platelet Volume 11.4 fL (7.4-10.4); Platelet Count 230 K/uL (130-400); RDW Coefficient of Variation 12.8 % (11.5-14.5); Red Blood Count 4.86 M/uL (4.7-6.1); White Blood Count 8.89 K/uL (4.8-10.8)
--- NOTE | 2021-02-02 08:18 | Surgery Progress Note ---
Date of Service February 02, 2021 Assessment & Plan (1) Enteritis: Plan: advance to low fiber diet d/c if tolerates diet possibly later today or tomorrow Admission and Anticipated Discharge Date Admission Date: January 30, 2021 Subjective bowels moving, tolerating full liquids, no pain Physical Exam Gastrointestinal (Abdomen): Inspection/Auscultation: + abdomen distended (minimal) Percussion/Palpation: abdomen soft; abdomen nontender Results & Data ([facility]) Vital Signs (Past 12 Hours) Vital Signs Temp Pulse Pulse Resp BP Pulse Ox 02/02/21 07:37 36.7 C 52 L 18 123/85 93 02/02/21 07:00 56 L 02/02/21 03:38 37 C 59 L 16 117/75 96 02/01/21 23:56 36.7 C 66 18 116/78 96 02/01/21 22:20 88 PG Care Time/CCT Total # of Minutes Spent Total Time Spent with Patient: Total time spent is greater than 50% in coordination of care (as documented) at patient's floor/unit and/or counseling patient: Coding Level of Care Code 68977 Subseq Hosp Care Lvl 1 Diagnoses Enteritis K52.9
[2021-02-02 08:24] LABS: BUN Creatinine Ratio 6.5 (10-20); Calcium 8.8 mg/dl (8.5-10.1); Creatinine Clr Calc Pharmacy 112.2 ml/min; Est GFR (African American) 110.4 ml/min; Est GFR (Non-African American) 95.3 ml/min; Magnesium 2.3 mg/dl (1.8-2.4); Potassium 3.8 mmol/L (3.5-5.1)
[2021-02-02 08:25] LABS: Phosphorus 2.6 mg/dl (2.5-4.9)
--- NOTE | 2021-02-02 08:33 | Hospitalist Progress Note ---
Date of Service February 02, 2021 Assessment & Plan (1) SBO (small bowel obstruction): (2) Enteritis: Plan: Patient is 50-year-old male with PMH BPH, chronic back pain presented to ER with complaint of vomiting x1 day. Unable to retain food. Last BM 4 days ago. Does not think he has been passing flatus. Denies abdominal pain In ER afebrile, P: 92, R: 18, BP 138/108, 94% on room air. WBC: 16. Lipase: WNL CT ABD/PELVIS: A few dilated gas and fluid-filled loops of small bowel within the midabdomen. The bowel loops distal to this area appear to be slightly thickened and demonstrate smooth tapering without evidence for a clear transition point. This favors a nonspecific enteritis resulting in a partial small bowel obstruction. Trace ascites. Horseshoe kidney. N.p.o.initially, tolerated clear liquid diet, started on full liquids yesterday IVF cont. Cipro + Flagyl stool cultx - pending Repeat KUB 01/31 - IMPRESSION: Findings suggestive of a persistent small bowel obstruction. 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 Overnight reports he was having loose stools, and then also 2 loose BMs this morning. He started on full liquid diet yesterday, per surgery okay to advance to low fiber diet We will continue to closely monitor diarrhea and his response to diet Denies fevers, chills, chest pain, shortness of breath General surgery following Review of Systems Review of Systems: All systems reviewed & are unremarkable except as noted in Subjective Physical Exam Physical Exam: General: no distress, WDWN Head: normocephalic, atraumatic Eyes: PERRL, EOM's intact, conjunctiva non-injected, anicteric ENT: normal inspection external ears, nose, mucous membranes moist Neck: supple, trachea midline Lungs: clear, no respiratory distress, no wheezing/rhonchi/rales CV: RRR, no murmur, no pretibial edema Abd: Positive bowel sounds, soft, + mildly tender to palp. Ext: no calf tenderness, no LE edema Neuro: A&O x 3, no facial asymmetry, speech fluent, moves extremities Skin: warm, dry Results & Data Results & Data ([facility]) Vital Signs (Past 12 Hours) Vital Signs Temp Pulse Pulse Resp BP Pulse Ox 02/02/21 07:37 36.7 C 52 L 18 123/85 93 02/02/21 07:00 56 L 02/02/21 03:38 37 C 59 L 16 117/75 96 02/01/21 23:56 36.7 C 66 18 116/78 96 02/01/21 22:20 88 Laboratory Results 02/02/21 02/02/21 Range/Units 07:32 07:32 WBC 8.89 (4.8-10.8) K/uL RBC 4.86 (4.7-6.1) M/uL Hgb 15.3 (14.0-18.0) g/dL Hct 45.6 (42-52) % MCV 93.8 (80-100) fL MCH 31.5 (25-34) pg MCHC 33.6 (32-36) g/dL RDW Std Deviation 44.0 (36.4-46.3) fL RDW Coeff of Laura 12.8 (11.5-14.5) % Plt Count 230 (130-400) K/uL MPV 11.4 H (7.4-10.4) fL Sodium 141 (136-145) mmol/L Potassium 3.8 (3.5-5.1) mmol/L Chloride 110 H (98-107) mmol/L Carbon Dioxide 25 (21-32) mmol/L Anion Gap 6.0 (3-11) BUN 6 L (7-18) mg/dl Creatinine 0.92 (0.6-1.4) mg/dl Est Cr Clr Drug Dosing 112.2 ml/min Est GFR ( Amer) 110.4 ml/min Est GFR (Non-Af Amer) 95.3 ml/min BUN/Creatinine Ratio 6.5 L (10-20) Glucose 93 (70-99) mg/dl Calcium 8.8 (8.5-10.1) mg/dl Phosphorus 2.6 (2.5-4.9) mg/dl Magnesium 2.3 (1.8-2.4) mg/dl Medications Administered Current Inpatient Medications Ciprofloxacin (Cipro / D5w) 400 mg in 200 mls @ 100 mls/hr IV Q12H [facility]; Protocol Stop: 02/09/21 21:59 Last Infusion: 02/01/21 23:02 Dose: Infused Documented by: Morphine Sulfate (Morphine Sulfate 2 Mg/Ml Carp) 2 mg IV Q4H PRN PRN Reason: Severe Pain Stop: 02/13/21 21:21 Ondansetron HCl (Ondansetron Inj 2 Mg/Ml 2 Ml Vial) 4 mg IV Q6H PRN PRN Reason: Nausea Stop: 03/01/21 21:21
[2021-02-02] MEDS ORDERED: POTASSIUM CHLORIDE CRTAB 20 MEQ TABCR PO STA (08:35)
[2021-02-02] MEDS: metroNIDAZOLE 500 MG/100 ML BAG IV SCH ×2 (09:26→16:08)
[2021-02-02] MEDS: CIPROFLOXACIN / D5W 400 MG/200 ML BAG IV SCH ×2 (10:44→23:09)
[2021-02-03] MEDS: metroNIDAZOLE 500 MG/100 ML BAG IV SCH ×3 (01:22→15:58)
[2021-02-03 07:11] LABS: Hematocrit (blood only) 44.9 % (42-52); Mean Corpuscular Hemoglobin 31.3 pg (25-34); Mean Corpuscular Hgb Conc 33.4 g/dL (32-36); Mean Corpuscular Volume 93.7 fL (80-100); Mean Platelet Volume 11.4 fL (7.4-10.4); Platelet Count 260 K/uL (130-400); RDW Standard Deviation 44.5 fL (36.4-46.3); Red Blood Count 4.79 M/uL (4.7-6.1); White Blood Count 6.87 K/uL (4.8-10.8)
[2021-02-03 07:44] LABS: BUN Creatinine Ratio 8.1 (10-20); Calcium 8.7 mg/dl (8.5-10.1); Creatinine Clr Calc Pharmacy 96.5 ml/min; Est GFR (African American) 93.1 ml/min; Est GFR (Non-African American) 80.3 ml/min; Magnesium 2.3 mg/dl (1.8-2.4); Potassium 3.9 mmol/L (3.5-5.1)
[2021-02-03 07:45] LABS: Phosphorus 2.8 mg/dl (2.5-4.9)
[2021-02-03] MEDS: CIPROFLOXACIN / D5W 400 MG/200 ML BAG IV SCH (09:50)
--- NOTE | 2021-02-03 11:40 | Hospitalist Progress Note ---
Date of Service February 03, 2021 Assessment & Plan (1) SBO (small bowel obstruction): (2) Enteritis: Plan: Patient is 50-year-old male with PMH BPH, chronic back pain presented to ER with complaint of vomiting x1 day. Unable to retain food. Last BM 4 days ago. Does not think he has been passing flatus. Denies abdominal pain In ER afebrile, P: 92, R: 18, BP 138/108, 94% on room air. WBC: 16. Lipase: WNL CT ABD/PELVIS: A few dilated gas and fluid-filled loops of small bowel within the midabdomen. The bowel loops distal to this area appear to be slightly thickened and demonstrate smooth tapering without evidence for a clear transition point. This favors a nonspecific enteritis resulting in a partial small bowel obstruction. Trace ascites. Horseshoe kidney. N.p.o.initially, tolerated clear liquid diet, then on full liquids Currently on low fiber diet, and tolerating well IVF cont. Cipro + Flagyl stool cultx - negative c.diff negative Repeat KUB 01/31 - IMPRESSION: Findings suggestive of a persistent small bowel obstruction. General surgery consulted and following 02/01 - Patient had 2 small BMs, passing gas, abdominal pain seems to be resolved - WBC normalized, advanced diet to full liquid 02/02 -overnight patient developed diarrhea, seen by surgery this morning, advanced to low fiber diet Mild nausea after having breakfast this morning, continue to closely monitor 02/03 -feeling well, tolerating low fiber diet, no nausea or vomiting no abdominal pain Diarrhea improved, had 2 BMs, C. 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 difficile negative Stool cultures negative Denies fevers, chills, chest pain, shortness of breath Patient would like to go home Review of Systems Review of Systems: All systems reviewed & are unremarkable except as noted in Subjective Physical Exam Physical Exam: General: no distress, WDWN Head: normocephalic, atraumatic Eyes: PERRL, EOM's intact, conjunctiva non-injected, anicteric ENT: normal inspection external ears, nose, mucous membranes moist Neck: supple, trachea midline Lungs: clear, no respiratory distress, no wheezing/rhonchi/rales CV: RRR, no murmur, no pretibial edema Abd: Positive bowel sounds, soft, non tender to palp. Ext: no calf tenderness, no LE edema Neuro: A&O x 3, no facial asymmetry, speech fluent, moves extremities Skin: warm, dry Results & Data Results & Data ([facility]) Vital Signs (Past 12 Hours) Vital Signs Temp Pulse Resp BP Pulse Ox 02/03/21 07:37 36.7 C 53 L 16 118/80 96 02/03/21 02:43 36.7 C 58 L 18 106/68 95 Laboratory Results 02/03/21 02/03/21 02/02/21 Range/Units 06:38 06:38 13:00 WBC 6.87 (4.8-10.8) K/uL RBC 4.79 (4.7-6.1) M/uL Hgb 15.0 (14.0-18.0) g/dL Hct 44.9 (42-52) % MCV 93.7 (80-100) fL MCH 31.3 (25-34) pg MCHC 33.4 (32-36) g/dL RDW Std Deviation 44.5 (36.4-46.3) fL RDW Coeff of Laura 13.0 (11.5-14.5) % Plt Count 260 (130-400) K/uL MPV 11.4 H (7.4-10.4) fL Sodium 141 (136-145) mmol/L Potassium 3.9 (3.5-5.1) mmol/L Chloride 109 H (98-107) mmol/L Carbon Dioxide 27 (21-32) mmol/L Anion Gap 5.0 (3-11) BUN 9 (7-18) mg/dl Creatinine 1.06 (0.6-1.4) mg/dl Est Cr Clr Drug Dosing 96.5 ml/min Est GFR ( Amer) 93.1 ml/min Est GFR (Non-Af Amer) 80.3 ml/min BUN/Creatinine Ratio 8.1 L (10-20) Glucose 92 (70-99) mg/dl Calcium 8.7 (8.5-10.1) mg/dl Phosphorus 2.8 (2.5-4.9) mg/dl Magnesium 2.3 (1.8-2.4) mg/dl Stl C. diff Tox B Gene Negative Cdiff Gene (Neg) Medications Administered Current Inpatient Medications Ciprofloxacin (Cipro / D5w) 400 mg in 200 mls @ 100 mls/hr IV Q12H TEJAS; Protocol Stop: 02/09/21 21:59 Last Admin: 02/03/21 09:50 Dose: 100 mls/hr Documented by: Metronidazole (Flagyl) 500 mg in 100 mls @ 100 mls/hr IV Q8H TEJAS; Protocol Stop: 02/09/21 21:59 Last Infusion: 02/03/21 11:03 Dose: Infused Documented by: Morphine Sulfate (Morphine Sulfate 2 Mg/Ml Carp) 2 mg IV Q4H PRN PRN Reason: Severe Pain Stop: 02/13/21 21:21 Ondansetron HCl (Ondansetron Inj 2 Mg/Ml 2 Ml Vial) 4 mg IV Q6H PRN PRN Reason: Nausea Stop: 03/01/21 21:21
--- NOTE | 2021-02-03 16:14 | Discharge Summary ---
Date of Service February 03, 2021 Admission HPI Per Admitting Provider Patient is 50-year-old male with PMH BPH, chronic back pain presented to ER with complaint of vomiting x1 day. Patient states history of recurrent low back pain and couple days ago started with low back pain again. Last night started with vomiting greater than 20 episodes. Reports every time he would try to drink something he would vomit. No vomiting since 10 AM today. Last BM 4 days ago. Does not think he has been passing flatus. Denies any abdominal pain. Last ate yesterday around noon. History hernia repair. Denies fever/chills, diaphoresis, hematemesis, melena, hematochezia, MITCHELL, dizziness, syncope, vision changes, neck pain, CP, SOB, orthopnea, palpitations, cough, sore throat, choking, otalgia, rhinorrhea, paresthesias, weakness, extremity weakness, extremity edema, rashes, urinary symptoms. In ER afebrile, P: 92, R: 18, BP 138/108, 94% on room air. WBC: 16. CT ABD/PELVIS: A few dilated gas and fluid-filled loops of small bowel within the midabdomen. The bowel loops distal to this area appear to be slightly thickened and demonstrate smooth tapering without evidence for a clear transition point. This favors a nonspecific enteritis resulting in a partial small bowel obstruction. Trace ascites. Horseshoe kidney. Admission Exam Per Admitting Provider General: no distress, WDWN Head: normocephalic, atraumatic Eyes: PERRL, EOM's intact, conjunctiva non-injected, anicteric ENT: normal inspection external ears, nose, mucous membranes moist Neck: supple, trachea midline Lungs: clear, no respiratory distress, no wheezing/rhonchi/rales CV: RRR, no murmur, no pretibial edema Abd: normal BS, soft, non-tender Ext: no cyanosis, no calf tenderness Neuro: A&O x 3, no focal deficits noted, normal affect Skin: warm, dry Principal Diagnosis Enteritis, possible SBO Discharge Exam General: no distress, WDWN Head: normocephalic, atraumatic Eyes: PERRL, EOM's intact, conjunctiva non-injected, anicteric ENT: normal inspection external ears, nose, mucous membranes moist Neck: supple, trachea midline Lungs: clear, no respiratory distress, no wheezing/rhonchi/rales CV: RRR, no murmur, no pretibial edema Abd: Positive bowel sounds, soft, non tender to palp. Ext: no calf tenderness, no LE edema Neuro: A&O x 3, no facial asymmetry, speech fluent, moves extremities Skin: warm, dry Discharge Data Allergies Allergy/AdvReac Type Severity Reaction Status Date / Time No Known Allergies Allergy Verified 01/30/21 15:03 Consultations 01/30/21 17:02 ED Decision to Admit Stat 01/30/21 21:22 Consult General Surgery Routine Ordered Studies 01/30/21 15:02 CT abd pelvis IV con only Stat IMPRESSION: 1. A few dilated gas and fluid-filled loops of small bowel within the midabdomen. The bowel loops distal to this area appear to be slightly thickened and demonstrate smooth tapering without evidence for a clear transition point. Therefore, this favors a nonspecific enteritis resulting in a partial small bowel obstruction. 2. Trace ascites. 3. Horseshoe kidney. 4. Additional findings as described above. Hospital Course (1) SBO (small bowel obstruction): (2) Enteritis: Patient is 50-year-old male with PMH BPH, chronic back pain presented to ER with complaint of vomiting x1 day. Unable to retain food. Last BM 4 days ago. Does not think he has been passing flatus. Denies abdominal pain In ER afebrile, P: 92, R: 18, BP 138/108, 94% on room air. WBC: 16. Lipase: WNL CT ABD/PELVIS: A few dilated gas and fluid-filled loops of small bowel within the midabdomen. The bowel loops distal to this area appear to be slightly thickened and demonstrate smooth tapering without evidence for a clear transition point. This favors a nonspecific enteritis resulting in a partial small bowel obstruction. Trace ascites. Horseshoe kidney. N.p.o.initially, tolerated clear liquid diet, then on full liquids Currently on low fiber diet, and tolerating well IVF cont. Cipro + Flagyl stool cultx - negative c.diff negative Repeat KUB 01/31 - IMPRESSION: Findings suggestive of a persistent small bowel obstruction. General surgery consulted and following 02/01 - Patient had 2 small BMs, passing gas, abdominal pain seems to be resolved - WBC normalized, advanced diet to full liquid 02/02 -overnight patient developed diarrhea, seen by surgery this morning, advanced to low fiber diet Mild nausea after having breakfast this morning, continue to closely monitor 02/03 -feeling well, tolerating low fiber diet, no nausea or vomiting no abdominal pain Diarrhea improved, had 2 BMs, C. 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: Denies headache, dizziness DVT Prophylaxis -SCDs Full Code as per discussion with pt Follows with Dr Myles for routine care Total Time Total Time Spent Total Time Spent (In Minutes): 35 Discharge Plan Discharge Items Patient Disposition: Home - Self-Care Reason For Visit: SBO Discharge Diagnosis: Enteritis, possible SBO Activity: Per Instructions section Non-emergency contact: Primary Care Provider Call non-emergency contact if: you have any medication questions and your symptoms worsen Follow-up/Referrals: Milvia Myles, [Primary Care Provider] - ( ) Diet: Low Fiber and Low Fat Addtl Attending Provider Instructions: Recommend to follow-up with your primary care doctor within 1 week. In the meantime, recommend low fiber, low-fat diet. Finish antibiotic course as prescribed. Pending Studies at Discharge: No Stand-Alone Forms: [facility] [employer], Smoking Cessation Medications and DC Order Prescriptions: New ciprofloxacin HCl 500 mg tablet 500 mg PO BID 3 Days Qty: 6 RF: 0 metronidazole 500 mg tablet 500 mg PO TID 3 Days Qty: 9 RF: 0 Continued etodolac 200 mg capsule 200 mg PO Q8H PRN (Reason: pain) Qty: 30 RF: 0 oxycodone 5 mg tablet 5 mg PO Q6H PRN (Reason: pain) Qty: 14 RF: 0 methylprednisolone [Medrol (Gian)] 4 mg tablets,dose pack 4 mg PO UD Qty: 21 RF: 0 cyclobenzaprine 10 mg tablet 10 mg PO BID PRN (Reason: Muscle Spasm) RF: 0 Discharge Orders: Discharge Order (Routine); Ordered 02/03/21 Ordered By: Jc Nixon Admission Data Admit Date/Time: 01/30/21 17:44 Attending Provider: Jc Nixon Admit Provider: Jc Nixon Primary Care Provider: Milvia Myles Other Providers: Jc Nixon ; Lenny Reynolds
== END 2021-02-03 17:42 | disposition home or self-care (01) | DRG 392 ==
LOC: ED 11:00 → 2N 17:44